=== PATIENT | male | born 1960 | race Caucasian/White ===

== ENCOUNTER 2017-05-02 12:18 | Day surgery (SDC) | payer OTHER ==
[~2017-05-02 12:18] MED LIST: LIDOCAINE HCL 1% PF 5 ML AMPULE OTHER ONE; PROPOFOL 200 MG/20 ML AMP IV ONE
[2017-05-02] MEDS ORDERED: METO50TA PO (13:18)
[2017-05-02] MEDS ORDERED: ENBR50IN2 SQ (13:18)
[2017-05-02] MEDS ORDERED: CHLORHEXIDINE GLUCONATE 2 % 1 PACK (2 CLOTHS) TOPICAL PRN (13:30)
[2017-05-02] MEDS ORDERED: METOPROLOL TARTRATE 25 MG TAB PO PRN (13:30)
[2017-05-02] MEDS ORDERED: POVIDONE IODINE 5% (ANTISEPSIS KIT) 4 APPLICATIONS EACH NARE PRN (13:30)
[2017-05-02] MEDS ORDERED: SODIUM CHLORID 0.9% 500 ML IV PRN (13:30)
[2017-05-02] MEDS ORDERED: LACTATED RINGER'S 1000 ML IV PRN (13:30)
[2017-05-02] MEDS ORDERED: INSULIN HUMAN REGULAR 1,000 UNITS/10 ML VIAL SQ PRN (13:30)
--- NOTE | 2017-05-02 17:18 | CF ---
cc: MILTON IQBAL MD DATE 05/02/17 PROCEDURE Transesophageal echocardiogram INDICATION Severe eccentric aortic regurgitation. CONSENT Full informed consent was obtained prior to the procedure. Risks of , bleeding, myocardial infarction, perforation, aspiration, foreseen and unforeseen complications were reviewed. The patient fully appeared to understand the risks. PROCEDURAL STATEMENT The patient prepped and draped usual manner. Full transesophageal echocardiogram was performed. Anesthesia was given per the anesthesia department. FINDINGS There was no evidence significant aortic root dilation with multiple dimensions at 3.9 and 3.8. There is evidence of eccentric aortic regurgitation with a pressure half-time of 215 milliseconds. CONCLUSION Severe aortic regurgitation which is very eccentric, trileaflet aortic valve. Mitral valve appeared to move normally with mild mitral regurgitation. Tricuspid valve moved normally. The interatrial septum was intact. Interventricular septum was intact. LV and RV function was normal. The aorta was visualized. The descending aorta was measured at two several locations and there was no evidence of significant descending aortic root dilation. CONCLUSION Eccentric aortic regurgitation which is severe with a pressure half-time of 215 milliseconds which is severe. Milton Iqbal MD, FRCP,[facility]/ /2:38 PM /5:07 PM [email or web address]
--- NOTE | 2017-05-03 15:27 | EKG ---
Date Performed: 05/02/2017 Time Performed: 13:20:44 PTAGE: 56 years EKG: Sinus rhythm . Possible septal infarct - age undetermined Abnormal ECG NO PREVIOUS TRACING DOCTOR: Jackie Mcdowell Interpretating Date/Time 05/03/2017 15:25:20
== END 2017-05-02 15:16 | disposition home or self-care (01) ==
LOC: HDIC 12:18 → HDOC 12:18
PROVIDERS: ATTEND Internal Medicine Cardiovascular Disease
DX: I35.1 Nonrheumatic aortic (valve) insufficiency (principal); I10 Essential (primary) hypertension; I71.2 Thoracic aortic aneurysm, without rupture; Z79.899 Other long term (current) drug therapy
CPT/HCPCS: 93005; 93312; 93320; 93325